=== PATIENT | female | born 1980 | race Two or more races ===

== ENCOUNTER 2022-05-06 07:58 | Outpatient (CLI) | payer OTHER | END 2022-05-06 15:51 | disposition home or self-care (01) | LOC: RAD 07:58 | DX: N94.89 Other specified conditions associated with female genital organs and menstrual cycle (principal) ==

== ENCOUNTER 2023-08-16 00:03 | Outpatient (CLI) | payer OTHER ==
[~2023-08-16] VITALS: Ht 157.5 cm; Wt 58.5 kg
[2023-08-16 00:21] LABS: HEMATOCRIT 29.9 % (36.0-45.00); HEMOGLOBIN 10.3 g/dL (12.0-15.00); MEAN CELL VOLUME 90.4 fL (80.00-100.00); MEAN CORPUSCULAR HEMOGLOBIN 31.1 pg (27.00-32.0); MEAN CORPUSCULAR HGB CONC 34.4 g/dl (32.0-36.0); PLATELET COUNT 191 K/uL (150-450); RED BLOOD COUNT 3.31 M/uL (4.00-6.00); RED CELL DISTRIBUTION WIDTH 13.6 % (11.5-14.5)
[2023-08-16 00:48] LABS: PH,URINE 6.5 (5.0-8.0); URINE APPEARANCE Clear; URINE BILIRRUBIN Negative (NEGATIVE); URINE BLOOD Negative; URINE COLOR Yellow; URINE GLUCOSE Negative (NEGATIVE); URINE LEUKOCYTE Negative; URINE NITRATE Negative; URINE PROTEIN Negative (NEGATIVE)
[2023-08-16 00:52] LABS: URINE BACTERIA 42.7 uL (0.0-1933); URINE EPITHELIAL CELLS 10.1 uL (0.0-38.8); URINE WBC 3.2 uL (0.0-23.2)
[2023-08-16] MEDS ORDERED: PRENATAL TABLE1 EAC4 PO (02:03)
[2023-08-16] MEDS ORDERED: IRON236 MG PO (02:03)
== END 2023-08-16 06:00 | disposition home or self-care (01) ==
LOC: OBS/DEL 00:03
PROVIDERS: ATTEND Obstetrics & Gynecology Gynecology
DX: O26.853 Spotting complicating pregnancy, third trimester (principal); Z3A.29 29 weeks gestation of pregnancy; Z88.2 Allergy status to sulfonamides; Z88.0 Allergy status to penicillin; Z91.013 Allergy to seafood

== ENCOUNTER 2023-10-02 11:23 | Inpatient (IN) | payer OTHER ==
[~2023-10-02] VITALS: Ht 157.5 cm; Wt 3.2 kg
[~2023-10-02 11:23] MED LIST: IRON236 MG PO; PRENATAL TABLE1 EAC4 PO
[2023-10-21 14:08] LABS: HEMOGLOBIN 12.1 g/dL (12.0-15.00); MEAN CELL VOLUME 94.6 fL (80.00-100.00); MEAN CORPUSCULAR HEMOGLOBIN 32.7 pg (27.00-32.0); MEAN CORPUSCULAR HGB CONC 34.6 g/dl (32.0-36.0); PLATELET COUNT 195 K/uL (150-450); RED CELL DISTRIBUTION WIDTH 15.2 % (11.5-14.5)
[2023-10-21 14:55] LABS: INR < 0.93; PARTIAL THROMBOPLASTIN TIME 25.2 SECONDS (22.0-34.0); PROTHROMBIN TIME 9.3 SECONDS (9.0-11.5)
[2023-10-21 15:02] LABS: ALBUMIN 2.9 gm/dL (3.4-5.0); BILIRUBIN TOTAL 0.42 mg/dL (0.3-1.2); CALCIUM 8.9 mg/dL (8.5-10.1); CREATININE SERUM 0.7 mg/dL (0.55-1.02); GFR 91.33; GLOBULINA 3.2 G/DL (2.4-3.5); POTASSIUM 4.25 mEq/L (3.5-5.1); TOTAL PROTEIN 6.1 gm/dL (6.4-8.2)
[2023-10-23 06:47] LABS: HEMATOCRIT 29.5 % (36.0-45.00); HEMOGLOBIN 10.1 g/dL (12.0-15.00); MEAN CELL VOLUME 95.7 fL (80.00-100.00); MEAN CORPUSCULAR HGB CONC 34.4 g/dl (32.0-36.0); PLATELET COUNT 153 K/uL (150-450); RED BLOOD COUNT 3.08 M/uL (4.00-6.00); RED CELL DISTRIBUTION WIDTH 15.5 % (11.5-14.5)
== END 2023-10-24 14:46 | disposition home or self-care (01) | DRG 788 ==
LOC: OB/GYN → LDR 10-21 13:12 → OB/GYN 10-22 13:17
PROVIDERS: Obstetrics & Gynecology; ADMIT Obstetrics & Gynecology Maternal & Fetal Medicine; ATTEND Obstetrics & Gynecology Maternal & Fetal Medicine
PROC: 4A1HXCZ Monitoring of Products of Conception, Cardiac Rate, External Approach (ICD-10-PCS; 2023-10-21)
PROC: 3E0P7VZ Introduction of Hormone into Female Reproductive, Via Natural or Artificial Opening (ICD-10-PCS; 2023-10-21)
PROC: 3E033VJ Introduction of Other Hormone into Peripheral Vein, Percutaneous Approach (ICD-10-PCS; 2023-10-22)
PROC: 10D00Z1 Extraction of Products of Conception, Low, Open Approach (ICD-10-PCS; principal; 2023-10-22 10:00)
DX: O32.6XX0 Maternal care for compound presentation, not applicable or unspecified (principal); Z3A.39 39 weeks gestation of pregnancy; Z37.0 Single live birth; Z20.822 Contact with and (suspected) exposure to COVID-19

== ENCOUNTER 2023-10-09 10:51 | Outpatient (CLI) | payer OTHER | END 2023-10-09 11:35 | disposition home or self-care (01) | LOC: NST 10:51 | PROVIDERS: ATTEND Obstetrics & Gynecology Maternal & Fetal Medicine | DX: Z34.83 Encounter for supervision of other normal pregnancy, third trimester (principal) ==

== ENCOUNTER 2024-06-04 17:43 | Emergency (ER) | payer OTHER ==
[~2024-06-04] VITALS: Ht 157.5 cm; Wt 52.6 kg
[2024-06-04 19:33] LABS: HEMATOCRIT 37.2 % (36.0-45.00); MEAN CELL VOLUME 85.3 fL (80.00-100.00); MEAN CORPUSCULAR HEMOGLOBIN 29.7 pg (27.00-32.0); MEAN CORPUSCULAR HGB CONC 34.8 g/dl (32.0-36.0); PLATELET COUNT 218 K/uL (150-450); RED BLOOD COUNT 4.37 M/uL (4.00-6.00); RED CELL DISTRIBUTION WIDTH 12.9 % (11.5-14.5)
[2024-06-04 19:51] LABS: CALCIUM 9.4 mg/dL (8.5-10.1); CREATININE SERUM 0.6 mg/dL (0.55-1.02); GFR 108.6; POTASSIUM 3.91 mEq/L (3.5-5.1)
[2024-06-04 20:06] LABS: INR 0.96; PARTIAL THROMBOPLASTIN TIME 35.9 SECONDS (22.0-34.0); PROTHROMBIN TIME 10.5 SECONDS (9.0-11.5)
== END 2024-06-04 21:38 | disposition home or self-care (01) ==
LOC: ER 17:43
PROVIDERS: General Practice
DX: R53.81 Other malaise (principal); R55 Syncope and collapse; Z88.0 Allergy status to penicillin; Z88.2 Allergy status to sulfonamides; Z91.013 Allergy to seafood